=== PATIENT | female | born 1960 | race Caucasian/White ===

== ENCOUNTER 2018-07-06 11:13 | Emergency (ER) | payer BC ==
[2018-07-06 12:09] VITALS: BP 142/76
--- NOTE | 2018-07-06 12:44 | UC ---
Respiratory Complaint HPI - HPI Summary HPI Summary: 57 yo female with sinus pressure and pain as well as cough X > 2 weeks bloody nasal d/c x 4 during that time cough productive of phlegm ears poppinig no fever no cp or sob - History of Current Complaint Chief Complaint: UCRespiratory Stated Complaint: EARS,SINUSES,COUGH Time Seen by Provider: 07/06/18 12:33 Hx Obtained From: Patient Onset/Duration: Gradual Onset, Lasting Days Timing: Constant Severity Initially: Mild Severity Currently: Moderate Pain Intensity: 4 Pain Scale Used: 0-10 Numeric Character: Cough: Nonproductive Aggravating Factors: Nothing Alleviating Factors: Nothing Associated Signs And Symptoms: Positive: Nasal Congestion, Sinus Discomfort - Allergies/Home Medications Allergies/Adverse Reactions: Allergies Allergy/AdvReac Type Severity Reaction Status Date / Time strawberry Allergy Hives Verified 07/06/18 12:01 morphine AdvReac Abdominal Verified 07/06/18 12:01 Pain Trigeminal Neuralgia Pain Med AdvReac Itching Uncoded 07/06/18 12:01 Home Medications: Home Medications Carbamazepine [Carbamazepine ER] 400 mg PO BID 07/06/18 [History Confirmed 07/06] Carbamazepine [Carbatrol] 100 mg PO BID 07/06/18 [History Confirmed 07/06/18] Gabapentin CAP(*) [Neurontin 300 CAP(*)] 300 mg PO SEE INSTRUCTIONS 07/06/18 [ History Confirmed 07/06/18] Losartan Potassium 100 mg PO DAILY 07/06/18 [History Confirmed 07/06/18] Omeprazole (Nf) [Prilosec (NF)] 40 mg PO DAILY 07/06/18 [History Confirmed 07/06] PMH/Surg Hx/FS Hx/Imm Hx Previously Healthy: Yes - trigeminal neuralgia Cardiovascular History: Hypertension - Surgical History Surgical History: Yes Surgery Procedure, Year, and Place: Scalp Microvascular Decompression, 2013, [place]; Tubal Ligation, 1993, [place]; Cholecystectomy, 1986, [place]; Trachiotomy, 1962 - Family History Known Family History: Positive: Hypertension - Social History Alcohol Use: None Substance Use Type: None Smoking Status (MU): Former Smoker Length of Time of Smoking/Using Tobacco: 1 PPD x 20 Years When Did the Patient Quit Smoking/Using Tobacco: 2008 Review of Systems All Other Systems Reviewed And Are Negative: Yes Constitutional: Positive: Negative Skin: Positive: Negative Eyes: Positive: Negative ENT: Positive: Nasal Discharge, Sinus Congestion, Sinus Pain/Tenderness Respiratory: Positive: Cough Cardiovascular: Positive: Negative Gastrointestinal: Positive: Negative Genitourinary: Positive: Negative Motor: Positive: Negative Neurovascular: Positive: Negative Musculoskeletal: Positive: Negative Neurological: Positive: Negative Psychological: Positive: Negative Physical Exam Triage Information Reviewed: Yes Appearance: Well-Appearing, No Pain Distress, Well-Nourished Vital Signs: Initial Vital Signs Temp 98.6 F 07/06/18 11:56 Pulse 60 07/06/18 11:56 Resp 16 07/06/18 11:56 BP 142/76 07/06/18 11:56 Pulse Ox 99 07/06/18 11:56 Vital Signs Reviewed: Yes Eyes: Positive: Conjunctiva Clear ENT: Positive: Hearing grossly normal, Nasal congestion, Nasal drainage, TM bulging, Sinus tenderness. Negative: Tonsillar swelling, Tonsillar exudate, Trismus, Muffled voice, Hoarse voice Dental Exam: Normal Neck: Positive: Supple, Nontender, No Lymphadenopathy Respiratory: Positive: Normal breath sounds, No respiratory distress, No accessory muscle use, Other: - bronchospastic cough and slight wheeze on forced expiration Cardiovascular: Positive: RRR, No Murmur Musculoskeletal: Positive: ROM Intact, No Edema Neurological: Positive: Alert Psychological Exam: Normal Skin Exam: Normal Respiratory Course/Dx - Differential Dx/Diagnosis Provider Diagnosis: Bronchitis, Sinusitis Discharge - Sign-Out/Discharge Documenting (check all that apply): Patient Departure All imaging exams completed and their final reports reviewed: No Studies - Discharge Plan Condition: Stable Disposition: HOME Prescriptions: Amoxicillin PO (*) [Amoxicillin 875 MG (*)] 875 mg PO BID #20 tab Patient Education Materials: Sinusitis (ED), Acute Bronchitis (ED) Referrals: No Primary Care Phys,NOPCP [Primary Care Provider] - Additional Instructions: recheck in 5-7 days if not better - Billing Disposition and Condition Condition: STABLE Disposition: Home
== END 2018-07-06 13:03 | disposition home or self-care (01) ==
LOC: UCCORT 11:13
DX: J32.9 Chronic sinusitis, unspecified (principal); J40 Bronchitis, not specified as acute or chronic; I10 Essential (primary) hypertension; Z79.899 Other long term (current) drug therapy; Z88.5 Allergy status to narcotic agent; Z88.8 Allergy status to other drugs, medicaments and biological substances; Z91.018 Allergy to other foods; Z87.891 Personal history of nicotine dependence
CPT/HCPCS: 99202; G0463